=== PATIENT | female | born 1995 | race Caucasian/White ===

== ENCOUNTER 2017-10-26 19:04 | Emergency (ER) | payer OTHER ==
[2017-10-26 21:11] VITALS: BP 117/65
== END 2017-10-26 19:55 | disposition home or self-care (01) ==
LOC: ED 19:04
DX: Z76.0 Encounter for issue of repeat prescription (principal)

== ENCOUNTER 2017-11-12 18:56 | Emergency (ER) | payer OTHER ==
[2017-11-12 20:55] VITALS: BP 106/74
== END 2017-11-12 20:55 | disposition home or self-care (01) ==
LOC: ED 18:56
DX: J11.1 Influenza due to unidentified influenza virus with other respiratory manifestations (principal); E07.9 Disorder of thyroid, unspecified
CPT/HCPCS: J1885

== ENCOUNTER 2018-11-02 14:47 | Emergency (ER) | payer OTHER ==
[~2018-11-02] VITALS: Ht 165.1 cm; Wt 70.3 kg
[2018-11-02 15:18] VITALS: BP 108/64; Ht 165.1 cm; Wt 70.3 kg
== END 2018-11-02 16:10 | disposition home or self-care (01) ==
LOC: ED 14:47
DX: E03.9 Hypothyroidism, unspecified (principal); Z76.0 Encounter for issue of repeat prescription